=== PATIENT | male | born 1990 | race American Indian/Alaskan Native ===

== ENCOUNTER 2022-09-27 23:59 | Emergency (ER) | payer OTHER ==
[~2022-09-27 23:59] MED LIST: Flumazenil 0.1 MG/ML 5 ML MDV IVPUSH PRN; Iopamidol 612 MG/ML 100 ML Bottle IVPUSH ONE; LORazepam 2 MG/ML SDV IVPUSH ONE; Sodium Chloride 0.9% 1,000 ML IV ONE; fentaNYL 100 MCG/2 ML SDV IVPUSH ONE
[2022-09-28] LABS: BASOPHILS PERCENT AUTO 0.3 % (0.0-1.0); EOSINOPHILS PERCENT AUTO 0.3 % (1.0-3.0); HEMATOCRIT 45.2 % (40.0-54.0); HEMOGLOBIN 15.3 g/dL (14.0-18.0); LYMPHOCYTES PERCENT AUTO 7.8 % (20.5-50.1); MEAN CORPUSCULAR HEMOGLOBIN 31.5 pg (27.0-34.0); MEAN CORPUSCULAR HGB CONC 33.8 g/dL (33.0-35.0); MEAN CORPUSCULAR VOLUME 93.2 fL (80-100); MONOCYTES PERCENT AUTO 7.5 % (2-8); NEUTROPHILS PERCENT AUTO 84.1 % (42.2-75.2); PLATELET COUNT,PLT 238 10^3/uL (150-450); RED BLOOD CELL COUNT 4.85 10^6/uL (4.6-6.2)
[2022-09-28 00:15] LABS: INR 0.9 (0.9-1.2); PROTHROMBIN TIME 9.7 SEC (9.0-12.0)
[2022-09-28 00:23] LABS: ALANINE AMINOTRANSFERASE,ALT 91 U/L (16-63); ALBUMIN 4.3 g/dL (3.4-5.0); ALKALINE PHOSPHATASE 82 U/L (46-116); ANION GAP 16.5 mEq/L (7-13); ASPARTATE AMNIOTRANSFERASE,AST 106 U/L (15-37); BILIRUBIN TOTAL 0.3 mg/dL (0.2-1.0); BLOOD UREA NITROGEN,BUN 7 mg/dL (7-18); CALCIUM 8.4 mg/dL (8.5-10.1); CARBON DIOXIDE,CO2 25 mmol/L (21-32); CHLORIDE,CL 105 mmol/L (98-107); CREATININE 0.88 mg/dL (0.70-1.30); GLUCOSE RANDOM 121 mg/dL (70-99); POTASSIUM,K 3.5 mmol/L (3.5-5.1); PROTEIN TOTAL,TP 8.4 g/dL (6.4-8.2); SODIUM,NA 143 mmol/L (136-145)
[2022-09-28 00:26] LABS: ESTIMATED GFR 119 mL/min (>=60)
[2022-09-28] MEDS ORDERED: Naloxone 2 MG/2 ML Syringe IVPUSH PRN (01:08)
[2022-09-28] MEDS ORDERED: fentaNYL 100 MCG/2 ML SDV IVPUSH ONE (01:08)
[2022-09-28 01:11] LABS: AMPHETAMINES,URINE NEGATIVE (NEGATIVE); BARBITURATES,URINE NEGATIVE (NEGATIVE); BENZODIAZEPINE,URINE NEGATIVE (NEGATIVE); MDMA (ECSTASY), URINE NEGATIVE (NEGATIVE); METHADONE,URINE NEGATIVE (NEGATIVE); METHAMPHETAMINES,URINE NEGATIVE (NEGATIVE); OPIATES,URINE NEGATIVE (NEGATIVE); OXYCODONE,URINE NEGATIVE (NEGATIVE); PHENCYCLIDINE,URINE NEGATIVE (NEGATIVE); TCA,URINE NEGATIVE (NEGATIVE)
[2022-09-28 02:10] LABS: LACTIC ACID 3.5 mmol/L (0.4-2.0)
== END 2022-09-28 02:10 ==
LOC: DL.ED 23:59
DX: S82.301A Unspecified fracture of lower end of right tibia, initial encounter for closed fracture (principal); S82.831A Other fracture of upper and lower end of right fibula, initial encounter for closed fracture; S27.0XXA Traumatic pneumothorax, initial encounter; V49.40XA Driver injured in collision with unspecified motor vehicles in traffic accident, initial encounter; Y92.410 Unspecified street and highway as the place of occurrence of the external cause
CPT/HCPCS: 36415; 70450; 71260; 72125; 73600; 74177; 80053; 80305; 80307; 83605; 85025; 85610; 86850; 86900; 86901; 96361; 96374; 96375; 96376; 99284; 99285; J2060; J3010; J7030; Q9967

== ENCOUNTER 2022-12-04 01:48 | Emergency (ER) | payer OTHER ==
[2022-12-04 02:21] VITALS: BP 110/87; PULSE 116
== END 2022-12-04 04:48 | disposition home or self-care (01) ==
LOC: DL.ED 01:48
DX: S93.421A Sprain of deltoid ligament of right ankle, initial encounter (principal); Z87.81 Personal history of (healed) traumatic fracture; X50.1XXA Overexertion from prolonged static or awkward postures, initial encounter
CPT/HCPCS: 73610-RT; 99282; 99283